=== PATIENT | female | born 1955 | race Caucasian/White ===

== ENCOUNTER 2020-12-05 11:03 | Observation (INO) ==
[2020-12-05 14:14] LABS: Basophils % 0.6 %; Mean Platelet Volume 11.1 fL (9.4-12.4)
[2020-12-05 14:15] LABS: Eosinophils # 0.1 K/mcL (0.0-0.6); Eosinophils % 1.2 %; Hematocrit 37.1 % (35.3-44.9); Hemoglobin 12.7 g/dL (11.5-15.4); Immature Granulocytes % 1.4 % (0-4); Immature Platelets 5.8 % (1.1-6.1); Lymphocytes # 0.7 K/mcL (0.6-4.6); Lymphocytes % 15.3 %; Mean Corpuscular HGB Conc 34.2 g/dL (31.6-35.5); Mean Corpuscular Hemoglobin 30.3 pg (28.0-33.3); Mean Corpuscular Volume 88.5 fL (83.0-100.0); Monocytes # 0.4 K/mcL (0.0-1.3); Monocytes % 8.9 %; Neutrophils # 3.5 K/mcL (1.6-8.9); Platelet Count 77 K/mcL (140-400); Red Blood Count 4.19 M/mcL (3.82-4.97); Red Cell Distribution Width 15.9 % (11.5-14.5); Segmented Neutrophils % 72.6 %; White Blood Count 4.8 K/mcL (4.3-11.1)
[2020-12-05 14:56] LABS: Alanine Aminotransferase 96 Units/L (7-52); Albumin 2.5 g/dL (3.5-5.7); Albumin/Globulin Ratio 0.6 (1.1-2.2); Alkaline Phosphatase 104 Units/L (34-104); Amylase 39 Units/L (29-103); Aspartate Amino Transferase 221 Units/L (13-39); BUN/Creatinine Ratio 18 (6-26); Bilirubin,Direct 2.5 mg/dL (0.0-0.2); Bilirubin,Indirect 1.6 mg/dL (0.0-1.0); Bilirubin,Total 4.1 mg/dL (0.3-1.0); Blood Urea Nitrogen 14 mg/dL (8-23); Calcium 8.2 mg/dL (8.6-10.3); Carbon Dioxide 29 mEq/L (23-29); Chloride 94 mEq/L (98-107); Globulin 4.4 g/dL (2.4-3.5); Glucose 100 mg/dL (70-105); Lipase 141 Units/L (11-82); Osmolality,Calculated 261 (280-300); Potassium 4.1 mEq/L (3.5-5.1); Sodium 125 mEq/L (136-145); Total Protein 6.9 g/dL (6.4-8.9); eGFR For African Americans > 60 (> 60); eGFR For Non-African Americans > 60 (> 60)
[2020-12-05] MEDS ORDERED: Isovue-370 500 ML BOTTLE IVP ONE (15:10)
[2020-12-05] MEDS ORDERED: 0.9 % Sodium Chloride 1,000 ML IVC ONE (15:11)
[2020-12-05] MEDS ORDERED: Ondansetron 4 MG/2 ML VIAL IVP ONE (15:11)
[2020-12-05] MEDS ORDERED: Ketorolac 15 MG/ML VIAL IVP ONE (15:16)
[2020-12-05] MEDS ORDERED: cefTRIAXone 1,000 MG in 0.9 % Sodium Chloride Mini Bag 100 ML IVPB ONE (15:19)
[2020-12-05 15:46] LABS: Bacteria,Urine Few per hpf (None-Few); Bilirubin,Urine Small (Negative); Blood,Urine Negative (Negative); Clarity,Urine Turbid (Clear); Color,Urine Dark-Yellow (Yellow); Glucose,Urine (UA) Normal (Normal); Hyaline Casts,Urine Few per lpf (None Seen); Ketones,Urine Negative (Negative); Leukocyte Esterase,Urine Negative (Negative); Mucus,Urine Few per lpf (None-Few); Nitrite,Urine Negative (Negative); Protein,Urine Trace mg/dL (Neg-Trace); RBC,Urine 0-3 per hpf (0-3); Squamous Epithelial Cell,Urine Few per hpf (None-Few); Urobilinogen,Urine >=8.0 mg/dL (Normal)
[2020-12-05 16:13] LABS: INR 1.9; Prothrombin Time 20.6 Seconds (9.4-12.1)
[2020-12-05 16:16] LABS: Activated Partial Thrombo Time 34.5 Seconds (26.0-36.0)
[2020-12-05 18:09] LABS: Hepatitis B Surface Antigen Nonreactive (Nonreactive)
[2020-12-05] MEDS ORDERED: *HR* LORazepam 2 MG/ML VIAL IVP PRN ×3 (18:21)
[2020-12-05] MEDS ORDERED: Naloxone 0.4 MG/ML INJ IVP PRN (18:24)
[2020-12-05] MEDS ORDERED: Ondansetron 4 MG/2 ML VIAL IVP PRN (18:24)
[2020-12-05 18:38] LABS: Hepatitis B Core IgM Nonreactive (Nonreactive)
[2020-12-05 18:39] LABS: Hepatitis A Antibody IgM Nonreactive (Nonreactive)
[2020-12-05 18:58] LABS: Acetaminophen 10 mcg/mL (10-20); Ethanol < 10 mg/dL (Less than 10); Salicylate < 2.5 mg/dL (15.0-30.0)
[2020-12-05 19:21] LABS: Hepatitis B Surface Antigen Nonreactive (Nonreactive)
[2020-12-05 19:51] LABS: Hepatitis B Core IgM Nonreactive (Nonreactive)
[2020-12-05 19:52] LABS: Hepatitis A Antibody IgM Nonreactive (Nonreactive)
[2020-12-05] MEDS: MetroNIDAZOLE 500 MG/100 ML 500 MG/100 ML BAG IVPB SCH (20:17)
[2020-12-05 20:35] LABS: Hepatitis C Virus Antibody Reactive (Nonreactive)
[2020-12-05 21:35] LABS: Hepatitis C Virus Antibody Reactive (Nonreactive)
[2020-12-06 05:05] LABS: Immature Granulocytes % 1.6 % (0-4); Red Cell Distribution Width 15.8 % (11.5-14.5)
[2020-12-06] MEDS: MetroNIDAZOLE 500 MG/100 ML 500 MG/100 ML BAG IVPB SCH ×3 (05:05→20:47)
[2020-12-06 05:06] LABS: Basophils % 0.8 %; Eosinophils # 0.1 K/mcL (0.0-0.6); Eosinophils % 2.2 %; Hematocrit 34.8 % (35.3-44.9); Immature Platelets 6.3 % (1.1-6.1); Lymphocytes # 0.7 K/mcL (0.6-4.6); Lymphocytes % 17.8 %; Mean Corpuscular HGB Conc 34.5 g/dL (31.6-35.5); Mean Corpuscular Hemoglobin 30.3 pg (28.0-33.3); Mean Corpuscular Volume 87.9 fL (83.0-100.0); Mean Platelet Volume 10.8 fL (9.4-12.4); Monocytes # 0.4 K/mcL (0.0-1.3); Monocytes % 11.2 %; Red Blood Count 3.96 M/mcL (3.82-4.97); Segmented Neutrophils % 66.4 %; White Blood Count 3.7 K/mcL (4.3-11.1)
[2020-12-06 05:07] LABS: Neutrophils # 2.5 K/mcL (1.6-8.9); Platelet Count 61 K/mcL (140-400)
[2020-12-06 05:15] LABS: Prothrombin Time 22.3 Seconds (9.4-12.1)
[2020-12-06 05:27] LABS: Alanine Aminotransferase 84 Units/L (7-52); Albumin 2.1 g/dL (3.5-5.7); Albumin/Globulin Ratio 0.5 (1.1-2.2); Alkaline Phosphatase 83 Units/L (34-104); Aspartate Amino Transferase 187 Units/L (13-39); BUN/Creatinine Ratio 20 (6-26); Bilirubin,Direct 2.7 mg/dL (0.0-0.2); Bilirubin,Indirect 1.6 mg/dL (0.0-1.0); Bilirubin,Total 4.3 mg/dL (0.3-1.0); Blood Urea Nitrogen 17 mg/dL (8-23); Calcium 7.8 mg/dL (8.6-10.3); Carbon Dioxide 24 mEq/L (23-29); Chloride 99 mEq/L (98-107); Globulin 3.9 g/dL (2.4-3.5); Glucose 75 mg/dL (70-105); Lipase 133 Units/L (11-82); Osmolality,Calculated 264 (280-300); Sodium 127 mEq/L (136-145); eGFR For African Americans > 60 (> 60); eGFR For Non-African Americans > 60 (> 60)
[2020-12-06] MEDS: Folic Acid 1 MG TABLET PO SCH (08:12)
[2020-12-06] MEDS: Vitamin B Complex/Vit C/Vit E 1 EACH TABLET PO SCH (08:12)
[2020-12-06] MEDS: Furosemide 40 MG TABLET PO SCH (08:12)
[2020-12-06] MEDS: Thiamine (B-1) 100 MG TABLET PO SCH (08:12)
[2020-12-06] MEDS: predniSONE 20 MG TABLET PO SCH (15:33)
[2020-12-06 16:36] LABS: RBC,Peritoneal Fluid < 2000 RBC/mcL
[2020-12-06 18:07] LABS: Appearance of Peritoneal Fl CLEAR (Clear)
[2020-12-06 18:11] LABS: Basophils,Peritoneal Fluid 0 %; Eosinophils,Peritoneal Fluid 0 %
[2020-12-06 18:49] LABS: Glucose,Peritoneal Fluid 88 mg/dL (No Ref Range); LDH,Peritoneal Fluid 41 Units/L (No Ref Range); Total Protein,Peritoneal Fluid < 2.0 g/dL
[2020-12-06] MEDS: rOPINIRole 0.25 MG TABLET PO SCH (20:47)
[2020-12-07] MEDS: MetroNIDAZOLE 500 MG/100 ML 500 MG/100 ML BAG IVPB SCH ×3 (03:55→21:01)
[2020-12-07] MEDS: Levothyroxine 25 MCG TABLET PO SCH (05:25)
[2020-12-07] MEDS ORDERED: Ibuprofen 600 MG TABLET PO ONE (06:10)
[2020-12-07 07:46] LABS: Basophils % 0.4 %
[2020-12-07 07:49] LABS: Hematocrit 31.9 % (35.3-44.9); Hemoglobin 10.9 g/dL (11.5-15.4); Immature Granulocytes % 0.7 % (0-4); Immature Platelets 4.2 % (1.1-6.1); Lymphocytes # 0.8 K/mcL (0.6-4.6); Lymphocytes % 14.2 %; Mean Corpuscular HGB Conc 34.2 g/dL (31.6-35.5); Mean Corpuscular Hemoglobin 30.3 pg (28.0-33.3); Mean Corpuscular Volume 88.6 fL (83.0-100.0); Mean Platelet Volume 11.3 fL (9.4-12.4); Monocytes # 0.5 K/mcL (0.0-1.3); Monocytes % 8.8 %; Neutrophils # 4.3 K/mcL (1.6-8.9); Red Cell Distribution Width 15.6 % (11.5-14.5); Segmented Neutrophils % 75.9 %; White Blood Count 5.7 K/mcL (4.3-11.1)
[2020-12-07 08:01] LABS: Platelet Count 68 K/mcL (140-400)
[2020-12-07 08:44] LABS: Platelet Estimate Slight Decrease (Normal)
[2020-12-07] MEDS: Vitamin B Complex/Vit C/Vit E 1 EACH TABLET PO SCH (09:11)
[2020-12-07] MEDS: Folic Acid 1 MG TABLET PO SCH (09:11)
[2020-12-07] MEDS: Thiamine (B-1) 100 MG TABLET PO SCH (09:11)
[2020-12-07] MEDS: Furosemide 40 MG TABLET PO SCH (09:11)
[2020-12-07] MEDS: predniSONE 20 MG TABLET PO SCH (09:11)
[2020-12-07 10:57] LABS: Alanine Aminotransferase 78 Units/L (7-52); Albumin/Globulin Ratio 0.5 (1.1-2.2); Alkaline Phosphatase 86 Units/L (34-104); Aspartate Amino Transferase 171 Units/L (13-39); BUN/Creatinine Ratio 25 (6-26); Bilirubin,Total 4.1 mg/dL (0.3-1.0); Blood Urea Nitrogen 17 mg/dL (8-23); Calcium 7.8 mg/dL (8.6-10.3); Carbon Dioxide 21 mEq/L (23-29); Chloride 100 mEq/L (98-107); Globulin 3.9 g/dL (2.4-3.5); Glucose 118 mg/dL (70-105); Osmolality,Calculated 269 (280-300); Potassium 4.2 mEq/L (3.5-5.1); Sodium 128 mEq/L (136-145); Total Protein 5.9 g/dL (6.4-8.9); eGFR For African Americans > 60 (> 60); eGFR For Non-African Americans > 60 (> 60)
[2020-12-07 11:26] LABS: INR 2.1; Prothrombin Time 23.5 Seconds (9.4-12.1)
[2020-12-07] MEDS: rOPINIRole 0.25 MG TABLET PO SCH (21:01)
[2020-12-08 02:56] LABS: Lymphocytes % 12.7 %
[2020-12-08 02:58] LABS: Basophils % 0.1 %; Hematocrit 32.9 % (35.3-44.9); Hemoglobin 11.2 g/dL (11.5-15.4); Immature Granulocytes % 0.4 % (0-4); Immature Platelets 4.2 % (1.1-6.1); Lymphocytes # 0.9 K/mcL (0.6-4.6); Mean Corpuscular Hemoglobin 29.8 pg (28.0-33.3); Mean Corpuscular Volume 87.5 fL (83.0-100.0); Monocytes # 0.6 K/mcL (0.0-1.3); Monocytes % 7.9 %; Neutrophils # 5.5 K/mcL (1.6-8.9); Red Blood Count 3.76 M/mcL (3.82-4.97); Red Cell Distribution Width 15.6 % (11.5-14.5); Segmented Neutrophils % 78.9 %
[2020-12-08 03:00] LABS: INR 2.1; Prothrombin Time 23.6 Seconds (9.4-12.1)
[2020-12-08 03:02] LABS: Platelet Count 80 K/mcL (140-400)
[2020-12-08 03:18] LABS: Alanine Aminotransferase 79 Units/L (7-52); Albumin 2.2 g/dL (3.5-5.7); Albumin/Globulin Ratio 0.5 (1.1-2.2); Alkaline Phosphatase 96 Units/L (34-104); Aspartate Amino Transferase 160 Units/L (13-39); BUN/Creatinine Ratio 25 (6-26); Bilirubin,Total 3.8 mg/dL (0.3-1.0); Blood Urea Nitrogen 20 mg/dL (8-23); Calcium 7.9 mg/dL (8.6-10.3); Carbon Dioxide 25 mEq/L (23-29); Chloride 101 mEq/L (98-107); Globulin 4.1 g/dL (2.4-3.5); Glucose 129 mg/dL (70-105); Osmolality,Calculated 272 (280-300); Potassium 4.3 mEq/L (3.5-5.1); Sodium 129 mEq/L (136-145); Total Protein 6.3 g/dL (6.4-8.9); eGFR For African Americans > 60 (> 60); eGFR For Non-African Americans > 60 (> 60)
[2020-12-08] MEDS: MetroNIDAZOLE 500 MG/100 ML 500 MG/100 ML BAG IVPB SCH ×2 (05:37→11:19)
[2020-12-08] MEDS: Levothyroxine 25 MCG TABLET PO SCH (05:37)
[2020-12-08 07:28] VITALS: TEMP 97.5
[2020-12-08] MEDS: predniSONE 20 MG TABLET PO SCH (08:04)
[2020-12-08] MEDS: Vitamin B Complex/Vit C/Vit E 1 EACH TABLET PO SCH (08:04)
[2020-12-08] MEDS: Folic Acid 1 MG TABLET PO SCH (08:05)
[2020-12-08] MEDS: Thiamine (B-1) 100 MG TABLET PO SCH (08:05)
[2020-12-08] MEDS: Furosemide 40 MG TABLET PO SCH (08:05)
[2020-12-08 11:20] VITALS: BP 118/73; PULSE 85; O2SAT 95
[2020-12-09 20:28] LABS: Fluid Source for Albumin PERITONEAL
== END 2020-12-08 13:36 | disposition home or self-care (01) ==
LOC: EMEROOARM 11:03 → 3ANU 11:03 → SUATTDRO 18:20 → 3ANU 19:58
PROVIDERS: ADMIT Internal Medicine; ATTEND Family Medicine